=== PATIENT | male | born 1955 | race African-American/Black ===

== ENCOUNTER 2021-12-01 09:40 | Emergency (ER) | payer OTHER ==
[~2021-12-01] VITALS: Ht 167.6 cm; Wt 82.0 kg
[2021-12-01] MEDS ORDERED: IBUPROFEN 400MG TABLET PO ONE (10:15)
[2021-12-01] MEDS ORDERED: ACETAMINOPHEN 325MG TABLET PO ONE (10:15)
[2021-12-01 10:21] VITALS: BP 193/92
[2021-12-01] MEDS ORDERED: SULF1TAB48 MT (14:26)
== END 2021-12-01 15:38 | disposition home or self-care (01) ==
LOC: ER 09:40
DX: M25.571 Pain in right ankle and joints of right foot (principal); M79.89 Other specified soft tissue disorders; I10 Essential (primary) hypertension; Z87.39 Personal history of other diseases of the musculoskeletal system and connective tissue
CPT/HCPCS: 73610; 99283; Z7610

== ENCOUNTER 2023-04-23 12:01 | Emergency (ER) | payer MEDICARE, OTHER ==
[~2023-04-23] VITALS: Ht 162.6 cm; Wt 82.0 kg
[~2023-04-23 12:01] MED LIST: SULF1TAB48 MT
[2023-04-23 12:14] VITALS: O2SAT 97
[2023-04-23] MEDS ORDERED: TETANUS, DIPHTHERIA, PERTUSSIS VAC/PF 0.5ML (>10YR OLD) IM ONE (12:45)
[2023-04-23 13:38] VITALS: BP 155/88; PULSE 68; RESP 18; TEMP 98.3
== END 2023-04-23 13:56 | disposition home or self-care (01) ==
LOC: ER 13:25
DX: S01.501A Unspecified open wound of lip, initial encounter (principal); I10 Essential (primary) hypertension; W18.30XA Fall on same level, unspecified, initial encounter; Y93.89 Activity, other specified; Y92.89 Other specified places as the place of occurrence of the external cause; Y99.8 Other external cause status
CPT/HCPCS: 90715; 90471; 99283; Z7610

== ENCOUNTER 2023-06-14 14:05 | Emergency (ER) | payer MEDICARE, OTHER ==
[~2023-06-14] VITALS: Ht 172.7 cm; Wt 81.0 kg
[2023-06-14 14:14] VITALS: O2SAT 97
[2023-06-14] MEDS ORDERED: KETOROLAC 60MG/2ML VIAL IM ONE (16:45)
[2023-06-14] MEDS ORDERED: IBUP-2028 MT (16:47)
[2023-06-14] MEDS ORDERED: CLONIDINE 0.2MG TABLET PO ONE (17:00)
[2023-06-14] MEDS ORDERED: CLONIDINE 0.1MG TABLET PO NR (17:00)
[2023-06-14] MEDS ORDERED: KETOROLAC 60MG/2ML VIAL IM NR (18:00)
[2023-06-14 18:49] VITALS: BP 155/92; PULSE 75; RESP 18; TEMP 98.1
== END 2023-06-14 18:54 | disposition home or self-care (01) ==
LOC: ER 14:05
DX: S16.1XXA Strain of muscle, fascia and tendon at neck level, initial encounter (principal); I10 Essential (primary) hypertension; X58.XXXA Exposure to other specified factors, initial encounter; Y93.89 Activity, other specified; Y92.89 Other specified places as the place of occurrence of the external cause; Y99.8 Other external cause status
CPT/HCPCS: 96372; 99283; J1885; Z7610

== ENCOUNTER 2024-01-08 11:15 | Emergency (ER) | payer MEDICARE, MEDICAID ==
[~2024-01-08] VITALS: Ht 162.6 cm; Wt 86.2 kg
[~2024-01-08 11:15] MED LIST changes: +IBUP-2028 MT
[2024-01-08 11:34] VITALS: O2SAT 99
[2024-01-08 13:10] LABS: CHLORIDE 105 mEq/L (98-107); POTASSIUM 3.6 mEq/L (3.5-5.1); SODIUM 138 mEq/L (136-145)
[2024-01-08 13:11] LABS: CARBON DIOXIDE 27 mEq/L (21-32)
[2024-01-08 13:16] LABS: CREATININE 0.7 mg/dL (0.6-1.3); GLUCOSE 83 mg/dL (70-105); UREA NITROGEN BLOOD 7 mg/dL (9-23)
[2024-01-08 13:18] LABS: ALANINE AMINOTRANSFERASE 10 IU/L (10-49); ALBUMIN 4.5 g/dL (3.2-4.8); ASPARTATE AMINOTRANSFERASE 15 IU/L (<34); BILIRUBIN TOTAL 0.7 mg/dL (0.1-1.0)
[2024-01-08 13:19] LABS: PROTEIN TOTAL 8.2 g/dL (6.0-8.3)
[2024-01-08 13:57] LABS: ERYTHROCYTE SEDIMENTATION RATE 48 mm/hr (0-20)
[2024-01-08 14:00] LABS: BASOPHILS % 0.5 % (0.0-2.0); EOSINOPHILS % 1.3 % (0.0-5.0); HEMATOCRIT. 41.7 % (42.0-52.0); HEMOGLOBIN. 13.8 g/dL (14.0-18.0); LYMPHOCYTES % 20.1 % (20.0-50.0); MEAN CORPUSCULAR HEMOGLOBIN 30.1 pg (28.0-32.0); MEAN CORPUSCULAR HGB CONC 33.2 g/dL (31.0-37.0); MEAN CORPUSCULAR VOLUME 90.6 fL (80.0-94.0); MEAN PLATELET VOLUME 10.2 fl (7.4-10.4); MONOCYTES % 11.4 % (2.0-8.0); NEUTROPHILS % 66.7 % (40.0-76.0); PLATELET 260 x1000/uL (130-400); RED CELL DISTRIBUTION WIDTH 13.5 % (11.6-14.6)
[2024-01-08] MEDS ORDERED: IOHEXOL-300 100 ML BOTTLE ONE (15:05)
[2024-01-08] MEDS ORDERED: TOPUD MT (15:06)
[2024-01-08] MEDS ORDERED: CEPH500T MT (15:06)
[2024-01-08] MEDS ORDERED: NAPR-679 MT (15:06)
[2024-01-08] MEDS ORDERED: SULF1TAB48 MT (15:06)
[2024-01-08] MEDS: CEPHALEXIN 250MG CAPSULE PO ONE (15:27)
[2024-01-08] MEDS: SULFAMETHOXAZOLE/TRIMETHOPRIM 800/160MG TABLET PO ONE (15:27)
[2024-01-08 15:30] VITALS: BP 135/71; PULSE 72; RESP 16; TEMP 98.6
== END 2024-01-08 15:35 | disposition home or self-care (01) ==
LOC: ER 12:29
DX: M79.89 Other specified soft tissue disorders (principal); M15.0 Primary generalized (osteo)arthritis; I10 Essential (primary) hypertension; Z79.899 Other long term (current) drug therapy
CPT/HCPCS: 80053; 85025; 85651; 36415; 73130; 73201; 99285; Q9967; Z7610